=== PATIENT | male | born 1995 | race Caucasian/White ===

== ENCOUNTER 2017-01-13 22:48 | Emergency (ER) | payer OTHER ==
[~2017-01-13] VITALS: Ht 182.9 cm; Wt 86.2 kg
--- NOTE | 2017-01-13 23:29 | ED GENERAL ADULT ---
History of Present Illness General Chief Complaint: General Adult Stated Complaint: SWOLLEN GLANDS AND FACE,WENT TO PMD TODAY,WORSE Source: patient, family Exam Limitations: no limitations Vital Signs & Intake/Output Vital Signs & Intake/Output Vital Signs Date Time Temp Pulse Resp B/P Pulse O2 O2 Flow FiO2 Ox Delivery Rate 01/14 0056 99.3 83 18 123/57 99 01/13 2318 Room Air 01/13 2256 97.9 97 15 151/79 100 Room Air ED Intake and Output 01/14 0000 01/13 1200 Intake Total 1000 Output Total Balance 1000 Intake, IV 1000 Patient 190 lb Weight Allergies Coded Allergies: No Known Allergies (01/13/17) Reconcile Medications Prednisone 20 MG TABLET 1 TAB PO BID INFLAMMATION Triage Note: PT TO ED FOR SWOLLEN GLANDS AND PAIN. REPORTING HE SAW HIS PMD TODAY "THEY LUCIO BLOOD WORK BUT ITS JUST SO UNCOMFORTABLE AND THEY DIDNT GIVE ME ANYTHING" Triage Nurses Notes Reviewed? yes Onset: Abrupt Duration: day(s): (several) Timing: recent history Injury Environment: home Severity: moderate Modifying Factors: Worsens With: other (SWALLOWING). Associated Symptoms: FACIAL SWELLING HPI: 21 year old male presents to the ER for chief complaint of swollen face to both sides. He was at his primary care doctor's office today and had outpatient blood work done to r/o mumps. He tried taking motrin over the counter without relief. Now he states it is too painful to open his mouth and that it hurts to swallow. Patient denies any testicular pain or swelling. Past History Travel History Traveled to [place] past 21 day No Medical History Any Pertinent Medical History? none Neurological: NONE EENT: NONE Cardiovascular: NONE Respiratory: NONE Gastrointestinal: NONE Hepatic: NONE Renal: NONE Musculoskeletal: NONE Psychiatric: NONE Endocrine: NONE Blood Disorders: NONE Cancer(s): NONE MILK TESTER/Reproductive: NONE Surgical History Surgical History: non-contributory Psychosocial History What is your primary language Welsh Tobacco Use: Never used ETOH Use: occasional use Illicit Drug Use: denies illicit drug use Family History Hx Contributory? No Review of Systems Review of Systems Constitutional: Denies: chills, fever. EENTM: Reports: see HPI (FACIAL SWELLING), mouth pain. Respiratory: Denies: cough, short of breath. Cardiovascular: Denies: chest pain, palpitations. GI: Denies: abdominal pain. Genitourinary: Denies: discharge, dysuria, pain. Musculoskeletal: Denies: back pain. Neurological/Psychological: Reports: anxiety. Hematologic/Endocrine: Denies: bruising, bleeding, polyuria, polydipsia. Immunologic/Allergic: Denies: splenectomy. Physical Exam Physical Exam General Appearance: well developed/nourished, alert, mild distress, moderate distress Head: atraumatic, normal appearance Eyes: Bilateral: normal appearance, PERRL, EOMI. Ears, Nose, Throat: SWOLLEN BILATEARL PAROTID GLANDS Neck: normal inspection, supple, full range of motion Respiratory: normal breath sounds, chest non-tender, no respiratory distress Cardiovascular: regular rate/rhythm Peripheral Pulses: 2+ radial (R), 2+ radial (L) Gastrointestinal: normal bowel sounds, soft, non-tender Extremities: normal inspection, normal capillary refill, normal range of motion, no edema Neurologic/Psych: no motor/sensory deficits, awake, alert, oriented x 3 Skin: intact, normal color, warm/dry Core Measures ACS in differential dx? No CVA/TIA Diagnosis: No Severe Sepsis Present: No Septic Shock Present: No Progress Differential Diagnoses I considered the following diagnoses in my evaluation of the patient: [mumps, parotitis, viral syndrome] Plan of Care: Orders Procedure Date/time Status RAPID VIRAL INFLUENZA A 01/13 2333 Complete COMPREHENSIVE METABOLIC PANEL 01/138 Complete CBC WITHOUT DIFFERENTIAL 01/138 Complete Laboratory Tests 01/13/17 2341: Anion Gap 13, Estimated GFR > 60, BUN/Creatinine Ratio 12.7, Glucose 84, Calcium 10.3 H, Total Bilirubin 0.9, AST 21, ALT 31, Alkaline Phosphatase 62, Total Protein 8.2, Albumin 4.9, Globulin 3.3, Albumin/Globulin Ratio 1.5, CBC w Diff MAN DIFF ORDERED, RBC 5.48, MCV 86.3, MCH 29.1, RDW 13.1, MPV 8.6, Gran % 83.9 H, Lymphocytes % 7.0 L, Monocytes % 8.4, Eosinophils % 0.5, Basophils % 0.2, Absolute Granulocytes 16.7 H, Segmented Neutrophils 79 H, Band Neutrophils 5, Absolute Lymphocytes 1.4, Lymphocytes 8 L, Monocytes 8, Absolute Monocytes 1.7 H, Absolute Eosinophils 0.1, Absolute Basophils 0, Platelet Estimate ADEQUATE, Normocytic RBCs VERIFIED, Normochromic RBCs VERIFIED, PUBS MCHC 33.8 Microbiology 01/13 2345 NASOPHARYN: Influenza Virus A & B Rapid Smear - COMP patient feeling much improved after toradol and decadron, NS. will follow up with PCP for testing. results discussed with patient and mother. Much improved on discharge. (JODI LUND,TOMMY) Initial ED EKG: none Departure Departure Time of Disposition: 010 Disposition: HOME OR SELF CARE Condition: Stable Clinical Impression Primary Impression: Parotitis, acute Referrals: LUCILA BOSS MD (PCP/Family) Additional Instructions: Take the motrin and prednisone as directed. Follow up with the outpatient mumps blood testing that your doctor sent. Return as needed. Departure Forms: Customer Survey General Discharge Information Prescriptions: Current Visit Scripts Prednisone 1 TAB PO BID #10 TAB Critical Care Note Critical Care Note Critical Care Time: non-applicable
[2017-01-14 00:08] LABS: ABSOLUTE BASOPHIL COUNT 0 /CUMM (0.0-0.2); ABSOLUTE EOSINOPHIL COUNT 0.1 /CUMM (0.0-0.7); ABSOLUTE GRANULOCYTE CT 16.7 /CUMM (1.4-6.5); ABSOLUTE LYMPH COUNT 1.4 /CUMM (1.2-3.4); ABSOLUTE MONOCYTE COUNT 1.7 /CUMM (0.10-0.60); BASOPHIL % 0.2 % (0.0-2.0); EOSINOPHIL % 0.5 % (0-5); GRANULOCYTE % 83.9 % (42.2-75.2); HEMATOCRIT 47.3 % (42-52); MEAN CORPUSCULAR HGB 29.1 PG (27.0-31.0); MEAN CORPUSCULAR HGB CONC 33.8 G/DL (33.0-37.0); MEAN CORPUSCULAR VOLUME 86.3 FL (80.0-94.0); MEAN PLATELET VOLUME 8.6 FL (7.4-10.4); PLATELET COUNT 267 /CUMM (130-400); RBC DISTRIBUTION WIDTH 13.1 % (11.5-14.5); RED BLOOD CELL CT 5.48 /CUMM (4.70-6.10); WHITE BLOOD CELL COUNT 19.9 /CUMM (4.8-10.8)
[2017-01-14 00:56] VITALS: BP 123/57
[2017-01-14] MEDS ORDERED: PREDNISONE20 M1 PO (01:18)
== END 2017-01-14 01:16 ==
LOC: ERH 22:48
PROVIDERS: Emergency Medicine
DX: K11.20 Sialoadenitis, unspecified (principal)
CPT/HCPCS: 87804; 87804-59; 96361; 96374; 96375; J1100; J1885